=== PATIENT | female | born 1955 | race Caucasian/White ===

== ENCOUNTER 2016-08-13 17:45 | Inpatient (IN) ==
[2016-08-13] MEDS ORDERED: 0.9 % SODIUM CHLORIDE 1,000 ML IV ONE ×2 (18:01→18:49)
--- NOTE | 2016-08-13 18:05 | Emergency Department Note ---
General Adult HPI - General Chief complaint: Fall Stated complaint: Fall, hit head Time Seen by Provider: 08/13/16 18:01 Source: patient, EMS Mode of arrival: EMS - History of Present Illness HPI Narrative: This patient fell a few times today she says because she lost her balance. He did hit the back of her head and has some pain in her head and neck. Did not lose consciousness and does not take blood thinners. - Related Data Home Medications Medication Instructions Recorded Confirmed Carvedilol [Coreg] 12.5 mg PO BID 01/24/15 01/24/15 Hydrochlorothiazide 12.5 mg PO DAILY 01/24/15 01/24/15 Lisinopril [Zestril] 10 mg PO DAILY 01/24/15 01/24/15 Potassium Chloride [Kdur] 10 meq PO ONCE 01/24/15 01/24/15 hydrOXYzine PAMOATE [Vistaril] 25 mg PO Q6HP PRN 01/24/15 01/24/15 Allergies Allergy/AdvReac Type Severity Reaction Status Date / Time omeprazole Allergy Intermediate HIVES Verified 01/24/15 21:45 Review of Systems Constitutional: Denies: fever Eyes: Denies: eye pain ENT ED: Denies: ear pain Cardiovascular: Denies: chest pain Respiratory: Denies: cough Gastrointestinal: Denies: abdominal pain, nausea Genitourinary: Denies: urgency Musculoskeletal: Denies: back pain Integumentary: Denies: rash Neurological: Reports: headache Psychiatric: Denies: anxiety Past Medical History - Past Medical History Medical history: Reports: hypertension Psychiatric history: Reports: depression Physical Exam - General Limitations: no limitations General appearance: alert - Head Head exam: other (has a knot on the occiput) - Eye Eye exam: Present: normal appearance - ENT ENT exam: normal exam - Neck Neck exam: Present: normal inspection - Chest Chest inspection: Present: normal inspection - Respiratory Respiratory exam: Present: normal lung sounds bilaterally - Cardiovascular Cardiovascular exam: Present: regular rate, normal rhythm, normal heart sounds - Abdominal Exam Abdominal exam: Present: soft. Absent: distention, tenderness - Neurological Exam Neurological exam: Present: alert - Psychiatric Psychiatric exam: Present: normal affect - Skin Skin exam: Present: warm, dry Course Vital Signs Temperature 101.0 F H 08/13/16 17:46 Pulse Rate 105 H 08/13/16 17:46 Respiratory Rate 27 H 08/13/16 17:46 Blood Pressure 191/120 08/13/16 17:46 Pulse Oximetry (%) 98 08/13/16 17:46 Temperature 101.0 F H 08/13/16 17:46 Pulse Rate 97 H 08/13/16 18:29 Respiratory Rate 22 08/13/16 18:29 Blood Pressure 188/97 08/13/16 18:29 Pulse Oximetry (%) 100 08/13/16 18:29 Medical Decision Making - Lab Data Lab results reviewed: Yes I reviewed the patient's lab results. Result diagrams: 08/13/16 17:56 08/13/16 18:02 Lab Results 08/13/16 08/13/16 08/13/16 Range/Units 17:56 18:02 18:02 WBC 17.2 H (4.5-11.0) K/mcL RBC 4.31 (4.00-5.20) M/mcL Hgb 12.5 (12.0-15.0) g/dL Hct 36.1 (36.0-48.0) % POC Hct 37.0 (36.0-48.0) % MCV 83.9 (80.0-100.0) fL MCH 29.0 (26.0-34.0) pg MCHC 34.6 (31.0-36.0) g/dL RDW 13.6 (11.5-14.5) % Plt Count 296 (140-440) K/mcL MPV 8.6 (7.4-10.4) fL Gran % 87.1 H (38.0-78.0) % Lymph % (Auto) 8.8 L (15.5-49.0) % Luna % (Auto) 3.8 (1.0-9.0) % Eos % (Auto) 0.3 (0.0-7.0) % Baso % (Auto) 0 (0.0-2.0) % Gran # 14.9 H (1.8-8.0) K/mcL Lymph # 1.5 (1.5-4.8) K/mcL Luna # 0.7 (0.1-0.9) K/mcL Eos # 0.1 (0.0-0.7) K/mcL Baso # 0 (0.0-0.3) K/mcL Total Counted 100 Seg Neutrophils % 76 (38-78) % Band Neutrophils % 2 (0-10) % Lymphocytes % 9 L (15-49) % Monocytes % (Manual) 12 H (1-9) % Basophils % (Manual) 1 (0-2) % Platelet Estimate Normal (NORMAL) RBC Morphology Normal (NORMAL) VBG Lactic Acid (0.5-2.2) mmol/L POC Sodium 121 L (133-145) mmol/L Sodium 122 L (133-145) mmol/L POC Potassium 2.2 L* (3.3-5.1) mmol/L Potassium 2.3 L* (3.3-5.1) mmol/L POC Chloride 78 L (96-108) mmol/L Chloride 78 L (96-108) mmol/L Carbon Dioxide 27 (22-30) mmol/L POC Total CO2 28 (22-30) mmol/L Anion Gap 17.0 H (8-16) POC BUN 17 (8-23) mg/dl BUN 17 (8-23) mg/dl Creatinine 1.7 H (0.6-1.1) mg/dl POC Creatinine 1.8 H (0.6-1.1) mg/dl GFR Calculation 32 Glucose 153 H (70-105) mg/dL POC Glucose 155 H (70-105) mg/dL Calcium 7.3 L (8.6-10.4) mg/dl POC WB Ioniz Calcium 0.84 L (1.16-1.32) mmol/L Total Bilirubin 0.3 (0.0-1.0) mg/dL AST 24 (0-37) U/l ALT 14 (0-40) U/l Alkaline Phosphatase 143 H (39-117) U/L Total Creatine Kinase 177 H (24-170) IU/L CK-MB (CK-2) 6.0 H (0-2.9) ng/ml Myoglobin 154 H (25-58) ng/ml Troponin T (0-0.03) ng/ml Total Protein 5.8 L (5.9-8.4) gm/dL Albumin 2.7 L (3.2-5.2) gm/dL Globulin 3.1 (2.2-3.7) gm/dL Albumin/Globulin Ratio 0.9 L (1.0-2.3) Urine Color Urine Appearance Urine pH (5.0-9.0) Ur Specific [place] (1.000-1.035) Urine Protein (NEG) mg/dL Urine Glucose (UA) (NEG) mg/dL Urine Ketones (NEG) mg/dL Urine Occult Blood (<0.03) mg/dL Urine Nitrate (NEG) Urine Bilirubin (NEG) mg/dL Urine Urobilinogen (NEG) mg/dL Ur Leukocyte Esterase (NEG) /uL Urine RBC (0-1) /hpf Urine WBC (0-4) /hpf Ur Squamous Epith Cells (0-4) /hpf Amorphous Crystals (0) /hpf Urine Bacteria (0) /hpf Urine Mucus (0) /hpf Ur Culture Indicated? Urine Opiates Screen (NONDETECTED) Urine Methadone Screen (NONDETECTED) Ur Barbiturates Screen (NONDETECTED) Ur Phencyclidine Scrn (NONDETECTED) Ur Amphetamines Screen (NONDETECTED) U Benzodiazepines Scrn (NONDETECTED) Urine Cocaine Screen (NONDETECTED) U Marijuana (THC) Screen (NONDETECTED) Ethyl Alcohol (<0.010) gm/dl 08/13/16 08/13/16 08/13/16 Range/Units 18:02 18:03 18:03 WBC (4.5-11.0) K/mcL RBC (4.00-5.20) M/mcL Hgb (12.0-15.0) g/dL Hct (36.0-48.0) % POC Hct (36.0-48.0) % MCV (80.0-100.0) fL MCH (26.0-34.0) pg MCHC (31.0-36.0) g/dL RDW (11.5-14.5) % Plt Count (140-440) K/mcL MPV (7.4-10.4) fL Gran % (38.0-78.0) % Lymph % (Auto) (15.5-49.0) % Luna % (Auto) (1.0-9.0) % Eos % (Auto) (0.0-7.0) % Baso % (Auto) (0.0-2.0) % Gran # (1.8-8.0) K/mcL Lymph # (1.5-4.8) K/mcL Luna # (0.1-0.9) K/mcL Eos # (0.0-0.7) K/mcL Baso # (0.0-0.3) K/mcL Total Counted Seg Neutrophils % (38-78) % Band Neutrophils % (0-10) % Lymphocytes % (15-49) % Monocytes % (Manual) (1-9) % Basophils % (Manual) (0-2) % Platelet Estimate (NORMAL) RBC Morphology (NORMAL) VBG Lactic Acid 1.2 (0.5-2.2) mmol/L POC Sodium (133-145) mmol/L Sodium (133-145) mmol/L POC Potassium (3.3-5.1) mmol/L Potassium (3.3-5.1) mmol/L POC Chloride (96-108) mmol/L Chloride (96-108) mmol/L Carbon Dioxide (22-30) mmol/L POC Total CO2 (22-30) mmol/L Anion Gap (8-16) POC BUN (8-23) mg/dl BUN (8-23) mg/dl Creatinine (0.6-1.1) mg/dl POC Creatinine (0.6-1.1) mg/dl GFR Calculation Glucose (70-105) mg/dL POC Glucose (70-105) mg/dL Calcium (8.6-10.4) mg/dl POC WB Ioniz Calcium (1.16-1.32) mmol/L Total Bilirubin (0.0-1.0) mg/dL AST (0-37) U/l ALT (0-40) U/l Alkaline Phosphatase (39-117) U/L Total Creatine Kinase (24-170) IU/L CK-MB (CK-2) (0-2.9) ng/ml Myoglobin (25-58) ng/ml Troponin T 0.03 (0-0.03) ng/ml Total Protein (5.9-8.4) gm/dL Albumin (3.2-5.2) gm/dL Globulin (2.2-3.7) gm/dL Albumin/Globulin Ratio (1.0-2.3) Urine Color Urine Appearance Urine pH (5.0-9.0) Ur Specific [place] (1.000-1.035) Urine Protein (NEG) mg/dL Urine Glucose (UA) (NEG) mg/dL Urine Ketones (NEG) mg/dL Urine Occult Blood (<0.03) mg/dL Urine Nitrate (NEG) Urine Bilirubin (NEG) mg/dL Urine Urobilinogen (NEG) mg/dL Ur Leukocyte Esterase (NEG) /uL Urine RBC (0-1) /hpf Urine WBC (0-4) /hpf Ur Squamous Epith Cells (0-4) /hpf Amorphous Crystals (0) /hpf Urine Bacteria (0) /hpf Urine Mucus (0) /hpf Ur Culture Indicated? Urine Opiates Screen (NONDETECTED) Urine Methadone Screen (NONDETECTED) Ur Barbiturates Screen (NONDETECTED) Ur Phencyclidine Scrn (NONDETECTED) Ur Amphetamines Screen (NONDETECTED) U Benzodiazepines Scrn (NONDETECTED) Urine Cocaine Screen (NONDETECTED) U Marijuana (THC) Screen (NONDETECTED) Ethyl Alcohol < 0.010 (<0.010) gm/dl 08/13/16 08/13/16 Range/Units 18:34 18:34 WBC (4.5-11.0) K/mcL RBC (4.00-5.20) M/mcL Hgb (12.0-15.0) g/dL Hct (36.0-48.0) % POC Hct (36.0-48.0) % MCV (80.0-100.0) fL MCH (26.0-34.0) pg MCHC (31.0-36.0) g/dL RDW (11.5-14.5) % Plt Count (140-440) K/mcL MPV (7.4-10.4) fL Gran % (38.0-78.0) % Lymph % (Auto) (15.5-49.0) % Luna % (Auto) (1.0-9.0) % Eos % (Auto) (0.0-7.0) % Baso % (Auto) (0.0-2.0) % Gran # (1.8-8.0) K/mcL Lymph # (1.5-4.8) K/mcL Luna # (0.1-0.9) K/mcL Eos # (0.0-0.7) K/mcL Baso # (0.0-0.3) K/mcL Total Counted Seg Neutrophils % (38-78) % Band Neutrophils % (0-10) % Lymphocytes % (15-49) % Monocytes % (Manual) (1-9) % Basophils % (Manual) (0-2) % Platelet Estimate (NORMAL) RBC Morphology (NORMAL) VBG Lactic Acid (0.5-2.2) mmol/L POC Sodium (133-145) mmol/L Sodium (133-145) mmol/L POC Potassium (3.3-5.1) mmol/L Potassium (3.3-5.1) mmol/L POC Chloride (96-108) mmol/L Chloride (96-108) mmol/L Carbon Dioxide (22-30) mmol/L POC Total CO2 (22-30) mmol/L Anion Gap (8-16) POC BUN (8-23) mg/dl BUN (8-23) mg/dl Creatinine (0.6-1.1) mg/dl POC Creatinine (0.6-1.1) mg/dl GFR Calculation Glucose (70-105) mg/dL POC Glucose (70-105) mg/dL Calcium (8.6-10.4) mg/dl POC WB Ioniz Calcium (1.16-1.32) mmol/L Total Bilirubin (0.0-1.0) mg/dL AST (0-37) U/l ALT (0-40) U/l Alkaline Phosphatase (39-117) U/L Total Creatine Kinase (24-170) IU/L CK-MB (CK-2) (0-2.9) ng/ml Myoglobin (25-58) ng/ml Troponin T (0-0.03) ng/ml Total Protein (5.9-8.4) gm/dL Albumin (3.2-5.2) gm/dL Globulin (2.2-3.7) gm/dL Albumin/Globulin Ratio (1.0-2.3) Urine Color Yellow Urine Appearance Hazy Urine pH 7.0 (5.0-9.0) Ur Specific [place] 1.010 (1.000-1.035) Urine Protein >=500 A (NEG) mg/dL Urine Glucose (UA) 50 A (NEG) mg/dL Urine Ketones Neg (NEG) mg/dL Urine Occult Blood Neg (<0.03) mg/dL Urine Nitrate Pos A (NEG) Urine Bilirubin Neg (NEG) mg/dL Urine Urobilinogen Neg (NEG) mg/dL Ur Leukocyte Esterase Neg (NEG) /uL Urine RBC 4 H (0-1) /hpf Urine WBC 12 H (0-4) /hpf Ur Squamous Epith Cells 7 H (0-4) /hpf Amorphous Crystals Few A (0) /hpf Urine Bacteria 0 (0) /hpf Urine Mucus Few (0) /hpf Ur Culture Indicated? No Urine Opiates Screen None detected (NONDETECTED) Urine Methadone Screen None detected (NONDETECTED) Ur Barbiturates Screen None detected (NONDETECTED) Ur Phencyclidine Scrn Suspect positive A (NONDETECTED) Ur Amphetamines Screen None detected (NONDETECTED) U Benzodiazepines Scrn None detected (NONDETECTED) Urine Cocaine Screen None detected (NONDETECTED) U Marijuana (THC) Screen Suspect positive A (NONDETECTED) Ethyl Alcohol (<0.010) gm/dl - Radiology Data Radiology results reviewed: Yes I reviewed the patient's radiology results. Disposition Clinical Impression: Hypokalemia, Hyponatremia, Urinary tract infection, Congestive heart failure Disposition: Xfer As Inpt ([facility]) Condition: Fair Referrals: Benjamin Morales MD [Primary Care Provider] - Time of Disposition: 19:59
[2016-08-13] MEDS ORDERED: POTASSIUM CHLORIDE 40 MEQ in DEXTROSE 5% IN WATER 500 ML IV ONE (18:12)
[2016-08-13] MEDS ORDERED: POTASSIUM CHLORIDE 20 MEQ/10 ML VIAL IV ONE ×2 (18:16→20:52)
[2016-08-13 18:36] LABS: Basophils # (Auto) 0 K/mcL (0.0-0.3); Basophils % (Auto) 0 % (0.0-2.0); Eosinophils # (Auto) 0.1 K/mcL (0.0-0.7); Eosinophils % (Auto) 0.3 % (0.0-7.0); Granulocytes % (Auto) 87.1 % (38.0-78.0); Lymphocytes # (Auto) 1.5 K/mcL (1.5-4.8); Lymphocytes % (Auto) 8.8 % (15.5-49.0); Mean Cell Volume 83.9 fL (80.0-100.0); Mean Corpuscular HGB Conc 34.6 g/dL (31.0-36.0); Monocytes # (Auto) 0.7 K/mcL (0.1-0.9); Monocytes % (Auto) 3.8 % (1.0-9.0); Platelet Count 296 K/mcL (140-440); RBC 4.31 M/mcL (4.00-5.20); Red Cell Distribution Width 13.6 % (11.5-14.5)
[2016-08-13 19:02] LABS: ALT/SGPT 14 U/l (0-40); Albumin 2.7 gm/dL (3.2-5.2); Albumin/Globulin Ratio 0.9 (1.0-2.3); Alkaline Phosphatase 143 U/L (39-117); Blood Urea Nitrogen 17 mg/dl (8-23); Creatine Kinase 177 IU/L (24-170); Myoglobin 154 ng/ml (25-58)
--- NOTE | 2016-08-13 19:04 | Cat Scan Report ---
CLINICAL INFORMATION: Trauma COMPARISON: 01/24/2015. TECHNIQUE: 2.5 mm helical slices were obtained from the skull base through the superior T2 end plate, and 1.25 mm reconstructions were obtained. 2.5 mm sagittal, coronal and axial reformations were then processed. The exam was reviewed at bone, soft tissue algorithm/window. FINDINGS: Sagittal and coronal reformatted images show the cervical spine be anatomically aligned. There is no fracture or other posttraumatic change. The cervical cord is normal in contour/caliber without hemorrhage or other abnormality. There is extraordinarily heavy calcific plaque in the carotid bifurcation. No other soft tissue abnormality. At C2-3, there is a mild broad soft disc protrusion which minimally impinges the thecal sac. At C3-4, moderate broad soft disc protrusion mildly impinges the thecal sac. At C4-5, moderate broad disc spur complex left-sided asymmetry results in moderate central canal and left lateral recess/IV foraminal narrowing impinging exiting C5 nerve root. At C5-6, mild broad disc protrusion is noted At C6-7, right-sided disc spur complex results in severe right lateral recess last IV foraminal narrowing impinging the exiting right C7 nerve root. There is mild central canal stenosis. At C7-T1, the disc levels normal. IMPRESSION: 1. No fracture or posttraumatic change 2. Multilevel degenerative change - stable 3. Heavy calcific plaque in the carotid bifurcation - suggest carotid duplex study Interpreted and Authenticated by: Emanuel Valdez 08/13/16
--- NOTE | 2016-08-13 19:08 | Cat Scan Report ---
CLINICAL INFORMATION: Trauma COMPARISON: 07/03/2010 TECHNIQUE: 2.5 mm helical slices were obtained in the skull base to vertex. Following reconstruction, axial reformatted images were reviewed at bone and parenchymal windows. FINDINGS: The ventricles, sulci, fissures, and cisterns are symmetrically enlarged bowel mild age-related atrophy - no extra-axial fluid collections or masses appreciated. Patchy chronic ischemic changes noted in the cerebral white matter. Scattered remote lacunar infarcts in the deep cerebral white matter, basal ganglia and thalamus show moderate progression from 2011. Bone windows show no osseous abnormality. IMPRESSION: Mild atrophy and chronic ischemic changes in the cerebral white matter with scattered remote lacunar infarcts in the basal ganglia and deep cerebral white matter which have progressed considerably from the 2011 study. There is no intracerebral hemorrhage or other acute finding. Note: Given the number of lacunar infarcts within the anterior circulation in a relatively young patient and the known heavy calcific plaque in the carotid bifurcation incidentally seen on the cervical spine CT, please consider CT cervical carotid arteriogram/CT cerebral angiogram to evaluate for carotid stenosis Interpreted and Authenticated by: Emanuel Valdez 08/13/16
--- NOTE | 2016-08-13 19:09 | XRay Report ---
CLINICAL INFORMATION: Fever COMPARISON: 01/24/2015 FINDINGS: The heart is mildly enlarged although accentuated by rotation and lordotic positioning. Mediastinum is unremarkable. The pulmonary vessels are mildly distended and there is mild diffuse interstitial edema. No infiltrates or effusions. Heavy calcific plaque in the carotid bifurcations. IMPRESSION: Mild CHF or volume overload Interpreted and Authenticated by: Emanuel Valdez 08/13/16
[2016-08-13 19:17] LABS: Band Neutrophils % 2 % (0-10); Basophils % (Manual) 1 % (0-2); Lymphocytes % 9 % (15-49); Monocytes % (Manual) 12 % (1-9); Platelet Estimate NORMAL (NORMAL); RBC Morphology NORMAL (NORMAL); Segmented Neutrophils % 76 % (38-78)
[2016-08-13 19:24] LABS: Appearance,Urine HAZY; Bacteria,Urine 0 /hpf (0); Bilirubin,Urine NEG (NEG); Color,Urine YELLOW; Glucose,Urine (UA) 50 mg/dL (NEG); Leukocyte Esterase,Urine NEG /uL (NEG); Mucus,Urine FEW /hpf (0); Nitrate,Urine POS (NEG); Protein,Urine >=500 mg/dL (NEG); Urine Amorphous Crystals FEW /hpf (0); Urine Blood NEG mg/dL (<0.03); Urine RBC 4 /hpf (0-1); Urine Squamous Epithelial Cell 7 /hpf (0-4); Urine WBC 12 /hpf (0-4); Urobilinogen,Urine NEG (NEG)
[2016-08-13 19:47] LABS: Amphetamine Screen,Urine NONE DETECTED (NONDETECTED); Benzodiazepines Screen,Urine NONE DETECTED (NONDETECTED); Cocaine Screen,Urine NONE DETECTED (NONDETECTED); Opiate Screen,Urine NONE DETECTED (NONDETECTED)
[2016-08-13] MEDS ORDERED: LEVOFLOXACIN 500 MG/100 ML BAG IV ONE ×2 (19:53→22:59)
[2016-08-13] MEDS ORDERED: POTASSIUM CHLORIDE 20 MEQ TABLET PO ONE (20:40)
[2016-08-13] MEDS ORDERED: POTASSIUM CHLORIDE 40 MEQ in 0.9 % SODIUM CHLORIDE 500 ML IV ONE (20:49)
[2016-08-13] MEDS ORDERED: POTASSIUM CHLORIDE 10 MEQ TABLET PO ONE (21:02)
[2016-08-13] MEDS ORDERED: FUROSEMIDE 40 MG/4 ML VIAL IV ONE (21:16)
[2016-08-13] MEDS ORDERED: traZODone HCL 50 MG TABLET PO PRN (22:28)
[2016-08-13] MEDS ORDERED: LEVOFLOXACIN 750 MG/150 ML BAG IV SCH (22:28)
[2016-08-13] MEDS ORDERED: ACETAMINOPHEN 1,000 MG/100 ML BOTTLE IV PRN (22:28)
[2016-08-13] MEDS ORDERED: ONDANSETRON 4 MG/2 ML VIAL IV PRN (22:28)
[2016-08-13] MEDS ORDERED: MAGNESIUM SULFATE 2 GM/50 ML BAG IV PRN ×2 (22:28)
[2016-08-13] MEDS ORDERED: FUROSEMIDE 40 MG/4 ML VIAL IV SCH (22:28)
[2016-08-13] MEDS ORDERED: cefTRIAXone 2 GM in DEXTROSE 5% IN WATER 50 ML IV SCH (22:28)
[2016-08-13] MEDS ORDERED: ACETAMINOPHEN 325 MG TABLET PO PRN (22:28)
[2016-08-13] MEDS ORDERED: guaiFENesin/CODEINE 10 ML UDC PO PRN (22:28)
[2016-08-13] MEDS ORDERED: POTASSIUM CHLORIDE 40 MEQ in DEXTROSE 5% IN WATER 500 ML IV PRN (22:28)
[2016-08-13] MEDS ORDERED: POTASSIUM CHLORIDE 20 MEQ PACKET PO PRN (22:28)
[2016-08-13] MEDS ORDERED: cefTRIAXone 2 GM VIAL ONE (23:03)
[2016-08-13] MEDS: POTASSIUM CHLORIDE 20 MEQ/15 ML ML PO SCH (23:19)
[2016-08-13] MEDS ORDERED: HYDROcodone/APAP 5/325MG TABLET PO ONE (23:26)
[2016-08-13 23:42] LABS: C-Reactive Protein 0.3 mg/dl (0.0-0.8)
[2016-08-14] MEDS: DOCUSATE SODIUM 100 MG CAPSULE PO SCH ×3 (00:08→20:58)
[2016-08-14] MEDS: SENNOSIDES/DOCUSATE SODIUM 1 TAB TABLET PO SCH ×2 (00:08→20:58)
[2016-08-14] MEDS ORDERED: HEPARIN 5,000 UNIT/ML VIAL ONE (00:09)
[2016-08-14] MEDS: 0.9 % SODIUM CHLORIDE 10 ML SYRINGE IV SCH ×5 (00:11→20:58)
[2016-08-14] MEDS: HEPARIN 5,000 UNIT/ML VIAL SQ SCH ×3 (00:12→20:57)
[2016-08-14] MEDS ORDERED: hydrALAZINE 20 MG/ML VIAL ONE (01:00)
[2016-08-14] MEDS ORDERED: ONDANSETRON 4 MG/2 ML VIAL ONE (01:19)
[2016-08-14] MEDS ORDERED: LORazepam 2 MG/ML VIAL ONE (01:25)
[2016-08-14] MEDS ORDERED: LORazepam 2 MG/ML VIAL IV PRN (01:29)
[2016-08-14 02:25] LABS: ALT/SGPT 12 U/l (0-40); Albumin 2.4 gm/dL (3.2-5.2); Alkaline Phosphatase 130 U/L (39-117); Bilirubin,Direct < 0.2 mg/dL (0.0-0.3); Blood Urea Nitrogen 15 mg/dl (8-23); Gamma Glutamyl Transpeptidase 20 U/L (5-36); Magnesium 1.2 mg/dL (1.6-2.5); Mean Cell Volume 84.7 fL (80.0-100.0); Mean Corpuscular HGB Conc 33.5 g/dL (31.0-36.0); Mean Corpuscular Hemoglobin 28.3 pg (26.0-34.0); Phosphorous 2.9 mg/dL (2.7-4.5); Platelet Count 279 K/mcL (140-440); RBC 4.04 M/mcL (4.00-5.20); Red Cell Distribution Width 13.8 % (11.5-14.5); Uric Acid 5.1 mg/dL (2.5-8.0)
[2016-08-14 02:37] LABS: Band Neutrophils % 2 % (0-10); Lymphocytes % 7 % (15-49); Monocytes % (Manual) 6 % (1-9); Platelet Estimate NORMAL (NORMAL); RBC Morphology NORMAL (NORMAL); Segmented Neutrophils % 85 % (38-78)
--- NOTE | 2016-08-14 04:06 | History and Physical Report ---
DATE OF ADMISSION: 08/13/2016 DATE OF ADMISSION: 08/13/2016 REASON FOR ADMISSION: Weakness, fall. HISTORY OF CHIEF COMPLAINT: The patient is a 60-year-old who comes to [facility] ER after she has been falling the last couple of days due to significant weakness. As per patient, she grieving loss of her mother and has been very depressed. She has been living in a trailer along with her cat. She has been extremely unkempt and has not been able take care of herself. She has had multiple abrasions and bruises over arm, head and lower extremities. Initial workup in the ER was significant for white count over 17,000 along with potassium of 2.2, sodium of 121 and creatinine 1.7. In light of acute renal failure, critical hypokalemia, sepsis, hospitalist service was consulted. The patient was started on aggressive potassium replacement including IV potassium. Nephrology was consulted. At the time of examination, the patient is alert. She is fairly disheveled. She was able to provide most of the history. She denies headache or photophobia. Denies diarrhea, bloody stool, dysuria, abdominal pain. She does endorse to nausea, but denies chest pain, palpitation, cough. She is a regular smoker, less than a pack a day. She has not had anything to eat over the last day and half and attributes to significant depression from loss of her mother. She also has two sisters in town that she is not in good relationship with. She did not have any other help in the recent past. REVIEW OF SYSTEMS: Ten-point review of system was performed and negative except what was discussed above. PAST MEDICAL HISTORY : 1. Hypertension. 2. History of dyslipidemia. 3. Peripheral artery disease. CURRENT MEDICATIONS: 1. Hydrochlorothiazide 12.5 daily. 2. Coreg 12.5 mg twice daily. 3. Lisinopril 10 mg daily. 4. Potassium 10 mEq daily. 5. Hydroxyzine 25 mg every 6 hours. ALLERGIES: Known to OMEPRAZOLE. SOCIAL HISTORY: The patient lives in a trailer. She has a couple of family members in town. She smokes nearly a pack a day. No history of alcoholism. Denies any substance abuse. CODE STATUS: FULL CODE. FAMILY HISTORY: The patient unable to provide significant details. PHYSICAL EXAMINATION: GENERAL: The patient is disheveled, anxious, fidgety. BMI 20.5. Height 5 feet 7 inches. VITAL SIGNS: Blood pressure 185/91, respiratory rate 19, temperature 97.6, pulse 84, sats 98 percent on room air. HEENT: Pupils symmetric. Oral cavity is dry. No ear or nose discharge. Head base of occiput significant bruising, 3 x 3 cm, but no discharge or bleeding. NECK: Normal range of motion with no lymphadenopathy. HEART: S1, S2, regular rhythm. Ejection systolic murmur grade 1. Diminished breath sounds at bases. ABDOMEN: Soft and nontender. No organomegaly. LOWER EXTREMITIES: No cyanosis or clubbing. No joint swelling. SKIN: Generalized dry skin. PSYCHIATRIC: Anxious, fidgety, but cooperative. No agitation or hallucination. NEURO: Nonfocal, moving all 4 extremities. LABS AND IMAGING: UA significant for total WBCs, nitrite positive. Sodium 120, potassium 2.2, creatinine 1.7, BUN 17. Myoglobin 154. BNP 37/91. Troponin 0.03. CK 177. Lactic acid 1.2. White count 13.2, hemoglobin 12.5. Urine phencyclidine positive, marijuana positive. CT head: Atrophic chronic ischemic changes. Multiple lacunar infarcts in the anterior circulation. No acute findings. CT cervical spine: No fracture. Heavy calcific carotid bifurcation plaque. X-ray chest: Mild CHF/volume overload. EKG: Early U waves noted, high voltage, right axis deviation. ASSESSMENT AND PLAN: A 60-year-old admitted with sepsis, critical hypokalemia/uvolemic hyponatremia. 1. Severe sepsis: Continue antibiotic coverage. Likely source urinary tract infection. Await cultures. Close hemodynamic monitoring. 2. Critical hypokalemia: Start oral and IV replacement including 80 oral/40 IV. Every 4 hour BMP until potassium around 3.5. 3. Euvolemic hyponatremia: The patient does not appear to be volume long. Unclear etiology, likely secondary to thiazide use/poor oral intake. Continue every 4 hour sodium checks and target sodium rise 10 mEq per day. Consult nephrology. 4. Acute renal failure: Nephrology consulted. Renal ultrasound to rule out obstructive uropathy. 5. Complicated urinary tract infection: Continue antibiotic coverage. 6. Prior medical issues including hypertension. Continue as-needed hydralazine, hold TRI inhibitor in light of acute renal insufficiency. 7. History of tobacco dependence: Continue nicotine patch. PLAN FOR TODAY: 1. Admit in ICU. 2. Aggressive potassium replacement. 3. Every 4 hour sodium checks along with potassium. 4. Antibiotic coverage. 5. Admit to ICU in light of [place] score 18 and high risk mortality given critical hypokalemia, symptomatic hyponatremia of uncertain etiology, acute renal failure and sepsis. [id number] Job ID: [id number] Doc ID: [id number] Manan Andrews MD [facility]ENTERQuinton
[2016-08-14] MEDS ORDERED: POTASSIUM CHLORIDE 20 MEQ/10 ML VIAL IV ONE ×2 (04:24→04:29)
[2016-08-14] MEDS ORDERED: MAGNESIUM SULFATE 2 GM/50 ML BAG IV ONE ×2 (04:24→08:24)
[2016-08-14] MEDS ORDERED: HYDROcodone/APAP 5/325MG TABLET PO ONE (06:45)
[2016-08-14] MEDS: POTASSIUM CHLORIDE 20 MEQ/15 ML ML PO SCH ×2 (08:07→17:33)
[2016-08-14] MEDS: MULTIVIT,THER IRON,CA,FA & MIN 1 TABLET PO SCH (09:30)
[2016-08-14 10:41] LABS: Blood Urea Nitrogen 13 mg/dl (8-23)
--- NOTE | 2016-08-14 10:46 | Internal Med Progress Note ---
Medical - PN: Subj Patient information: Note initiated : 08/14/16 at 10:42 am Service Date, if different from initiated Date: [] Patient: Eliz Bruno 60 y/o F admitted on 08/13/16 for Sepsis, Critical Hypokalemia/Uvolemic Hyponatremia. Chief Complaint: [] Interval history: - patient admitted with critical hypokalemia,symptomatic hyponatremia, congestive heart failure weakness and falls. Associated UTI with sepsis. Admitted to ICU. High risk mortality. On aggressive electrolyte Replacement/ Monitoring. Nephrology consulted. CHERI secondary to severe sepsis 08/14- dictation responding well to treatment along with aggressive electrolyte replacements. Continue ICU care. Potassium from 2.2-3.4. creatinine down from 1.7-1.5. Magnesium up from 0.9-1.2. sodium improved to 124. Aontinue dietary supplements/supportive management. white count downtrending from 17.2 -16.4. Stable labs and hemodynamics. cultures negative so far - Constitutional Vitals: Vital Signs Temp Pulse Resp BP Pulse Ox 98.4 F 83 20 152/88 97 08/14/16 07:00 08/14/16 06:00 08/14/16 09:00 08/14/16 09:00 08/14/16 09:00 Period Temp Pulse Resp BP Sys/Cates Pulse Ox Last 24 Hr 97.6 F-98.4 F 82-92 16-20 143-194/79-107 96-100 Intake and Output 08/13/16 08/14/16 08/14/16 21:59 05:59 13:59 Intake Total 1728 / 1728 630 / 630 Output Total 2900 / 4400 Balance -1172 / -2672 630 / 630 Intake & Output: Intake & Output 08/13/16 08/14/16 08/14/16 21:59 05:59 13:59 Intake Total 1728 / 1728 630 / 630 Output Total 2900 / 4400 Balance -1172 / -2672 630 / 630 Intake: IV 668 / 668 100 / 100 Sodium Chloride 0.9% 1, 148 / 148 000 ml @ Wide Open IV BOLUS ONE Rx#:[id number] LEVAQUIN 500 mg In 100 ml 50 / 50 As IV .STK-MED ONE Rx#: [id number] MAGNESIUM SULFATE 2 gm In 50 / 50 50 ml As IV .STK-MED ONE Rx#:[id number] Saline Flush 500 ML @ 130 520 / 520 mls/hr IV ONCE ONE with Potassium Chloride 40 Meq Rx#:[id number] Oral 960 / 960 480 / 480 IV - Manual Only 100 / 100 50 / 50 Output: Urine Catheter Amount 2900 / 4400 Other: Meal Nourishment/Supplement Breakfast Percent of Meal Consumed 100% 50% # Bowel Movements 0 General appearance: cooperative, no acute distress Exam: grieving- loss of mother Anxious No telemetry events Foleys draining clear urine nonlabored breathing Medical - PN: Obj Da - Labs CBC & Chem 7: 08/14/16 01:31 08/14/16 08:08 Labs: Abnormal Lab Results 08/14/16 08/14/16 08/14/16 08:08 01:31 01:31 WBC 16.4 H Hgb 11.5 L Hct 34.3 L Seg Neutrophils % 85 H Lymphocytes % 7 L ESR Sodium 124 L 124 L Potassium 3.1 L Chloride 84 L 83 L Creatinine 1.5 H 1.6 H Glucose 138 H Calcium 6.8 L 6.7 L Magnesium 1.2 L Alkaline Phosphatase 130 H Total Protein 4.9 L Albumin 2.4 L 08/13/16 08/13/16 22:40 22:40 WBC Hgb Hct Seg Neutrophils % Lymphocytes % ESR 65 H Sodium Potassium Chloride Creatinine Glucose Calcium Magnesium 1.3 L Alkaline Phosphatase Total Protein Albumin Meds: Medications Acetaminophen (Tylenol) 650 mg PO Q4-6HP PRN PRN Reason: PAIN/FEVER > 101 Last Admin: 08/14/16 08:08 Dose: 650 mg Acetaminophen/Hydrocodone Bitart ([place] 5/325mg) 1 tab PO Q4-6HP PRN PRN Reason: Pain Docusate Sodium (Colace) 100 mg PO BID [facility] Last Admin: 08/14/16 09:30 Dose: 100 mg Guaifenesin/Codeine Phosphate (Robitussin Ac) 10 ml PO Q4HP PRN PRN Reason: Cough Heparin Sodium (Porcine) (Heparin) 5,000 unit SQ Q12 [facility] Last Admin: 08/14/16 09:31 Dose: 5,000 unit Hydralazine HCl (Apresoline) 0 mg IV Q8HP PRN PRN Reason: Hypertension Potassium Chloride 40 meq/ (Dextrose) 520 mls @ 130 mls/hr IV UD PRN PRN Reason: K+ = or < 3.5 Magnesium Sulfate (Magnesium Sulfate) 2 gm in 50 mls @ 50 mls/hr IV UD PRN PRN Reason: Mag < or = 1.7 Acetaminophen (Ofirmev) 1,000 mg in 100 mls @ 200 mls/hr IV Q6HP PRN PRN Reason: PAIN/FEVER > 101 Ceftriaxone Sodium 2 gm/ (Dextrose) 50 mls @ 100 mls/hr IV DAILY [facility] Levofloxacin (Levaquin) 750 mg in 150 mls @ 100 mls/hr IV Q48H [facility] Iron Carb/Multivit/[place]/Folic Acid (Multivitamin W/Minerals) 1 tab PO DAILY [facility] Last Admin: 08/14/16 09:30 Dose: 1 tab Lorazepam (Ativan) 0.5 mg IV BIDP PRN PRN Reason: ANXIETY/SEDATION Last Admin: 08/14/16 10:08 Dose: 0.5 mg Ondansetron HCl (Zofran) 4 mg IV Q4-6HP PRN PRN Reason: Nausea And Vomiting Pneumococcal Polyvalent Vaccine (Pneumovax 23) 0.5 ml IM .ONCE ONE Stop: 08/15/16 09:01 Potassium Chloride (Klor-Con) 40 meq PO DAILYP PRN PRN Reason: K+ < 3.5 Potassium Chloride (Potassium Chloride) 40 meq PO BIDCC [facility] Last Admin: 08/14/16 08:07 Dose: 40 meq Senna/Docusate Sodium (Senna Plus Tablet) 1 tab PO HS [facility] Last Admin: 08/14/16 00:08 Dose: Not Given Sodium Chloride (Saline Flush) 10 ml IV Q8 [facility] Last Admin: 08/14/16 05:00 Dose: 10 ml Trazodone HCl (Desyrel) 50 mg PO HSP PRN PRN Reason: Insomnia Medical - PN: A/P - Time Spent With Patient Total time spent is greater than 50% in coordination of care (as documented) at patient's floor/unit and/or counseling patient: 25 - 35 minutes (1) Acute hypokalemia Status: Acute Assessment and plan: * Critical hypokalemiamultiple electrolyte abnormalities- ephrology consulted. Potassium up from 2.2-3.4 with replacement. * low magnesium and calcium-continue replacement * Euvolemic hyponatremia-Gradually uptrending sodium. Likely secondary to poor solute intake * severe sepsis from complicated UTI with end organ dysfunction-clinically improving * Complicated UTI on antibiotic coverage * CHERI-gradual improvement noted with crystalloids and sepsis management * History of hypertension- unclear if the patient has been taking her home medications. systolics around 150s plan * continue aggressive electrolyte Replacement including otassium/magnesium/ calcium * every 4 BMP * Antibiotic coverage and sepsis management per guidelines * Monitor renal function * nephrology consult Critical care time: 35 minutes Current Visit: Yes Medical - PN: Qual - VTE Deep Vein Thrombosis/Pulmonary Embolism Present on Admission: No
--- NOTE | 2016-08-14 13:44 | Ultrasound Report ---
History: Acute renal failure and evaluate for obstructive uropathy Findings: Right kidney is atrophic and measures 3.0 x 3.9 x 6.0 cm. There is compensatory enlargement of left kidney which measures 5.3 x 5.4 x 12.4 cm. This is a chronic stable finding, unchanged from the prior ultrasound done on 10/10/13. Superior lateral to the right kidney there are small collections of fluid. One is in Morison's pouch and measures 0.9 x 1.1 x 1.4 cm. Lateral to the midportion right kidney there is another cystic structure which measures 0.6 x 0.9 x 1.3 cm. These were not present on the prior ultrasound. There is no hydronephrosis or stone in the right kidney. Centrally in the left kidney there are multiple echogenic shadowing structures. The largest is 0.4 x 0.9 cm. These appear to be stones. They were not seen on the prior exam. There are also prominent hypoechoic pyramids. There is a cortical hypoechoic structure laterally in the midportion which measures 0.7 x 0.9 x 1.0 cm. This could be a cyst with some internal echogenic material. This was also seen on the prior study. There is a Cruz catheter within the bladder. The bladder is incompletely decompressed. Impression: 1. Chronic atrophy of the right kidney. Adjacent to the kidney there are two small irregularly-shaped fluid collections of undetermined etiology. 2. Nonobstructing kidney stones in left kidney but without hydronephrosis. 1. 1 cm complex cyst laterally in the midportion left kidney Interpreted and Authenticated by: Leroy Salinas 08/14/16
--- NOTE | 2016-08-14 14:14 | Nephrology Consult Note ---
History of Present Illness - Reason for Consult Patient information: Note initiated : 08/14/16 at 1:42 pm Service Date, if different from initiated Date: [] Patient: Eliz Bruno a 60 y/o F admitted on 08/13/16 for Sepsis, Critical Hypokalemia/Uvolemic Hyponatremia. Chief Complaint: [] Consult date: 08/14/16 acute renal failure, hyponatremia, hypokalemia Requesting physician: Manan Andrews - Chief Complaint fall - History of Present Illness Ms Bruno is a 60 y/o white female with PMH of htn, cad, chf, PVD and other multiple medical issues who is admitted with hyponatremia, hypokalemia and renal issues Patient presented to the ED after she had a fall at home Patient does not remember if she was dizzy or lightheaded She does have some bruises over her neck on evaluation she was found to have hyponatremia and hypokalemia and abnormal renal function, uncontrolled HTN and mild CHF and also UTI and hence she was hospitalised She states that she has been feeling depressed since her mother and not eating or drinking much fluids or takign her medications She has lost almost 20 lbs She denies edema, SOB, CP no nausea, vomiting no diarrhea no urinary symptoms Review of Systems All systems PM: reviewed and no additional remarkable complaints except as stated ( IN HPI) Past History Past surgical history: HTN CAD/CHF PVD CKD Past family history: sister had ESRD was on dialysis, from cardiac issues Past social history: lives alone at present has kids who live in [place] smokes a pack of cig every day Utox positive for marijuana and ?? PCP Medications and Allergies Home Medications Medication Instructions Recorded Confirmed Type Benazepril [Lotensin] 40 mg PO DAILY 08/14/16 08/14/16 History Triamterene/Hydrochlorothiazid 1 each PO DAILY 08/14/16 08/14/16 History [Triamterene-Hctz 37.5-25 mg Tb] amLODIPine [Norvasc] 10 mg PO DAILY 08/14/16 08/14/16 History Allergies Allergy/AdvReac Type Severity Reaction Status Date / Time omeprazole Allergy Intermediate HIVES Verified 01/24/15 21:45 Exam - Vital Signs Vital signs: Temp Pulse Resp BP Pulse Ox 98.0 F 83 16 172/90 98 08/14/16 12:00 08/14/16 06:00 08/14/16 12:00 08/14/16 12:00 08/14/16 12:00 - General Appearance General appearance: chronically ill EENT: mucous membranes moist Neck: no JVD Respiratory: clear Cardiology: no rub, no edema, normal S1, normal S2 Gastrointestinal: no tenderness, no guarding Integumentary: no rash, warm and dry Neurologic: no focal deficit, alert and oriented x3 Musculoskeletal: no erythema, no cyanosis Psychiatric: depressed (TEARFUL DURING ENTIRE EXAM) Results - Lab Results 08/14/16 01:31 08/14/16 08:08 Most recent lab results Calcium 6.8 mg/dl (8.6-10.4) L 08/14/16 08:08 Phosphorus 2.9 mg/dL (2.7-4.5) 08/14/16 01:31 Magnesium 1.2 mg/dL (1.6-2.5) L 08/14/16 01:31 Assessment and Plan (1) Chronic kidney disease, stage 3 Patient was seen a couple of yrs ago then lost to follow up I have seen her in the past, last visit in 2013, s.creat was 1.4-1.5 then s.creat was 2.7 last year when she was in ED so renal function is stable she has proteinuria on her UA so will obtain UPCR renal US pending will follow the same Hyponatremia and hypokalemia and hypomagesemia from poor po intake as was not taking medications improving labs with replacement would continue with aggressive replacement UTI/Sepsis: ongoing antibiotics will follow culture HTN: uncontrolled as renal function is at baseline would be safe to resume ACEI, would also start amlodipine will follow along Thank you for giving me an opportunity to participate in Ms Bruno's medical care , appreciate it Status: Acute (2) Acute hypokalemia Status: Acute (3) Hyponatremia Status: Acute
[2016-08-14] MEDS: cefTRIAXone 2 GM in DEXTROSE 5% IN WATER 50 ML IV SCH (14:43)
[2016-08-14] MEDS ORDERED: NICOTINE 21 MG PATCH TOPICAL ONE (15:07)
[2016-08-14] MEDS: HYDROcodone/APAP 5/325MG TABLET PO PRN ×2 (15:11→22:18)
[2016-08-14] MEDS: LORazepam 0.5 MG TABLET PO PRN ×2 (15:40→20:57)
[2016-08-14 15:50] LABS: Blood Urea Nitrogen 13 mg/dl (8-23)
[2016-08-14 18:36] LABS: Blood Urea Nitrogen 14 mg/dl (8-23)
[2016-08-14] MEDS ORDERED: amLODIPine 5 MG TABLET PO SCH (21:00)
[2016-08-14 21:57] LABS: Blood Urea Nitrogen 16 mg/dl (8-23)
[2016-08-14] MEDS: hydrALAZINE 20 MG/ML VIAL IV PRN (22:03)
[2016-08-14] MEDS ORDERED: FUROSEMIDE 40 MG/4 ML VIAL IV ONE ×2 (23:36→23:37)
[2016-08-15 01:11] LABS: Blood Urea Nitrogen 15 mg/dl (8-23)
[2016-08-15 05:07] LABS: Mean Cell Volume 86.7 fL (80.0-100.0); Mean Corpuscular HGB Conc 33.1 g/dL (31.0-36.0); Mean Corpuscular Hemoglobin 28.7 pg (26.0-34.0); Platelet Count 263 K/mcL (140-440); RBC 3.92 M/mcL (4.00-5.20); Red Cell Distribution Width 15.4 % (11.5-14.5)
[2016-08-15 05:45] LABS: ALT/SGPT 10 U/l (0-40); Albumin 2.3 gm/dL (3.2-5.2); Albumin/Globulin Ratio 0.8 (1.0-2.3); Alkaline Phosphatase 126 U/L (39-117); Bilirubin,Direct < 0.2 mg/dL (0.0-0.3); Blood Urea Nitrogen 15 mg/dl (8-23); Gamma Glutamyl Transpeptidase 21 U/L (5-36); Magnesium 1.7 mg/dL (1.6-2.5); Phosphorous 3.4 mg/dL (2.7-4.5); Uric Acid 5.4 mg/dL (2.5-8.0)
[2016-08-15 05:59] LABS: Anisocytosis 1+ (NONE SEEN); Eosinophils % (Manual) 2 % (0-7); Lymphocytes % 13 % (15-49); Monocytes % (Manual) 7 % (1-9); Platelet Estimate NORMAL (NORMAL); RBC Morphology ABNORM (NORMAL); Segmented Neutrophils % 78 % (38-78)
[2016-08-15] MEDS: hydrALAZINE 20 MG/ML VIAL IV PRN (06:01)
[2016-08-15] MEDS: HYDROcodone/APAP 5/325MG TABLET PO PRN ×3 (06:16→13:58)
[2016-08-15] MEDS: 0.9 % SODIUM CHLORIDE 10 ML SYRINGE IV SCH ×4 (06:17→21:27)
[2016-08-15] MEDS: LORazepam 0.5 MG TABLET PO PRN ×2 (06:40→21:26)
--- NOTE | 2016-08-15 06:49 | Echocardiogram Report ---
ECHOCARDIOGRAM: 2-D and M-mode echocardiography with cardiac Doppler and color flow imaging were performed with a [employer]. Indication is congestive heart failure. Overall and size of the RA, RV, and aortic root appeared normal. The LA and LV appeared mildly enlarged. LV wall thickness appeared normal. Systolic performance appeared moderately and globally depressed. Estimated ejection fraction is 40%. There was no evidence for mural thrombi. The aortic valve appeared trileaflet and normal. There was no evidence for aortic stenosis or aortic regurgitation by Doppler interrogation. The mitral and tricuspid valves appeared structurally unremarkable. Doppler interrogation of LV inflow disclosed prolonged early diastolic deceleration time and ''a'' wave dominance indicating delayed LV relaxation. Mitral regurgitation, probably moderately severe to severe (3-4+) was noted. Color flow imaging disclosed a prominent centrally directed regurgitant jet. Pulmonary venous interrogation disclosed normal ''s'' wave dominance. The pulmonic valve was not visualized. Pulmonary artery acceleration time appeared normal. There was no evidence for pulmonic stenosis or pulmonic regurgitation. There was no evidence for tricuspid regurgitation. No intracardiac shunting was appreciated. Some contrast in the right heart chambers, probably related to an IV infusion were appreciated, however. There was no evidence for pericardial effusion. The IVC was dilated and did not vary with the respiratory cycle indicating raised the CVP. PA systolic could not be calculated due to absent tricuspid regurgitation jet. Sinus rhythm, rate 76, was present. CONCLUSION: Mitral regurgitation, probably moderately severe to severe (3-4+). Mild LV enlargement with moderate global systolic dysfunction/mild LA enlargement, probably related to the atrial regurgitation. Probable raised CVP. (See accompanying M-mode and Doppler reports for quantitation.) ECHOCARDIOGRAPHY M-MODE CALCULATIONS: HT: 67'' WT: 131 BSA: 1.69 m2 NORMALS AORTA: AORTIC ROOT 2.9 2.0-3.7 cm LEFT ATRIUM 4.4 1.9-4.0 cm MITRAL VALVE: EXCURSION 1.6 1.9-2.7 cm EPSS 1.5 <0.5 cm LT VENTRICLE: LVID (ED) 5.5 3.5-5.7 cm LVID (ES) 4.3 SEPTAL THICKNESS 1.1 0.6-1.1 cm SEPTAL EXCURSION 0.6 0.3-0.8 cm LVPW THICKNESS 1.2 0.6-1.1 cm LVPW EXCURSION 1.1 0.9-1.4 cm MINOR AXIS FS 2.2 25%-40% RT VENTRICLE: RVID (ED) -- 0.9-2.6 cm(up to 3cm if LLD) QUALITATIVE DOPPLER FLOW STUDIES MITRAL VALVE MR, probably moderately severe to severe (3-4+) AORTIC VALVE -- TRICUSPID VALVE -- PULMONIC VALVE -- QUANTITATIVE DOPPLER FLOW STUDIES SAMPLE SITES VELOCITIES PEAK PRESSURE VALVE AREA and/or VALVE WINDOW (PEAK,M/SEC) DROP (GRADIENT) PRESSURE HALF-TIME MV (Diastole) 1.2 1.5 -- -- MV (Systole) 6.3 -- -- AO (Diastole) -- -- -- AO (Systole) 1.6 -- -- TV (Systole) -- -- -- PV (Systole) 0.95 -- -- PV (Diastole) -- LWG:kylah Job ID: [id number] Doc ID: [id number] Sanchez Carrion MD
[2016-08-15] MEDS: POTASSIUM CHLORIDE 20 MEQ/15 ML ML PO SCH (08:05)
--- NOTE | 2016-08-15 08:17 | XRay Report ---
HISTORY: Reason for Exam:Interval Change=- CHF FINDINGS: The heart size is normal. Prominent increased interstitial lung markings are present in both lower lobes and around the right hilum. Small infiltrate is developing adjacent left diaphragm and lateral to the left upper heart border. There is also a tiny left-sided pleural effusion. The infiltrate and pleural effusion are new since 08/13/16. The interstitial lung disease remains stable. The pulmonary vessels, best seen in the upper lobes are normal in caliber. Comparison with the prior chest CT done at [place] on 01/28/08 shows the patient has underlying emphysema. IMPRESSION: 1. Small infiltrate left lower lobe which may be due two pneumonia or atelectasis 2. Stable interstitial lung disease in both lower lobes and around the right hilum. This is more likely due to underlying pulmonary fibrosis from COPD rather than interstitial edema from congestive heart failure Interpreted and Authenticated by: Leroy Salinas 08/15/16
[2016-08-15] MEDS: DOCUSATE SODIUM 100 MG CAPSULE PO SCH ×2 (08:47→21:26)
[2016-08-15] MEDS: HEPARIN 5,000 UNIT/ML VIAL SQ SCH ×2 (08:47→21:26)
[2016-08-15] MEDS: MULTIVIT,THER IRON,CA,FA & MIN 1 TABLET PO SCH (08:47)
[2016-08-15] MEDS ORDERED: LISINOPRIL 20 MG TABLET PO SCH (09:00)
[2016-08-15] MEDS ORDERED: LEVOFLOXACIN 750 MG/150 ML BAG IV SCH (09:00)
[2016-08-15] MEDS ORDERED: PNEUMOCOCCAL 23-VAL P-SAC VAC 0.5 ML VIAL IM ONE (09:00)
[2016-08-15] MEDS: cefTRIAXone 2 GM in DEXTROSE 5% IN WATER 50 ML IV SCH (09:49)
[2016-08-15] MEDS ORDERED: NICOTINE 21 MG PATCH TOPICAL SCH (10:00)
--- NOTE | 2016-08-15 10:11 | Internal Med Progress Note ---
Medical - PN: Subj Patient information: Note initiated : 08/15/16 at 10:09 am Service Date, if different from initiated Date: [] Patient: Eliz Bruno 60 y/o F admitted on 08/13/16 for Sepsis, Critical Hypokalemia/Uvolemic Hyponatremia. Chief Complaint: [] Interval history: 08/13- patient admitted with critical hypokalemia,symptomatic hyponatremia, congestive heart failure weakness and falls. Associated UTI with sepsis. Admitted to ICU. High risk mortality. On aggressive electrolyte Replacement/ Monitoring. Nephrology consulted. CHERI secondary to severe sepsis 08/14- dictation responding well to treatment along with aggressive electrolyte replacements. Continue ICU care. Potassium from 2.2-3.4. creatinine down from 1.7-1.5. Magnesium up from 0.9-1.2. sodium improved to 124. Aontinue dietary supplements/supportive management. white count downtrending from 17.2 -16.4. Stable labs and hemodynamics. cultures negative so far 08/15- Patient doing well. No overnight events. No concerns per staff other than extremely emotionally labile patient experiencing suicidal ideation. Mental health services/[facility] consult rdered. Much improved renal function, electrolytes and potassium/magnesium/sodium. improved appetite and tolerating diet. white count down to 11.5 from 16.4. cultures negative so far. Stable hemodynamics - Constitutional Vitals: Vital Signs Temp Pulse Resp BP Pulse Ox 97.8 F 110 H 18 164/104 100 08/15/16 07:00 08/15/16 07:35 08/15/16 09:00 08/15/16 09:00 08/15/16 09:00 Period Temp Pulse Resp BP Sys/Cates Pulse Ox Last 24 Hr 97.6 F-98.2 F 95-119 16-25 147-185/77-107 92-100 Intake and Output 08/14/16 08/15/16 08/15/16 21:59 05:59 13:59 Intake Total 2330 / 2330 820 / 820 350 / 350 Output Total 1000 / 1000 1900 / 1900 Balance 1330 / 1330 -1080 / -1080 350 / 350 Weight 135 lb Intake & Output: Intake & Output 08/14/16 08/15/16 08/15/16 21:59 05:59 13:59 Intake Total 2330 / 2330 820 / 820 350 / 350 Output Total 1000 / 1000 1900 / 1900 Balance 1330 / 1330 -1080 / -1080 350 / 350 Weight 135 lb Intake: IV 50 / 50 50 / 50 Dextrose 5% in Water 50 50 / 50 ml @ 100 mls/hr IV DAILY ELIZABETH with Rocephin 2 gm Rx #:[id number] Oral 2280 / 2280 820 / 820 300 / 300 Output: Urine Catheter Amount 1000 / 1000 1900 / 1900 Other: Meal Dinner Percent of Meal Consumed 100% Feeding Ability Assist with Tray Set Up # Bowel Movements 0 0 General appearance: cooperative, no acute distress Exam: emotionally labile Cooperative Nonlabored breathing No telemetry events except for tachycardia around 115 No lymphedema Medical - PN: Obj Da - Labs CBC & Chem 7: 08/15/16 04:15 08/15/16 04:15 Labs: Abnormal Lab Results 08/15/16 08/15/16 08/15/16 04:15 04:15 00:05 WBC 11.5 H RBC 3.92 L Hgb 11.3 L Hct 34.0 L RDW 15.4 H Seg Neutrophils % Lymphocytes % 13 L RBC Morphology Abnorm A Anisocytosis 1+ A RBC Fragments Occ A ESR Sodium 127 L 123 L Potassium Chloride 87 L 86 L Creatinine 1.4 H 1.4 H Glucose 115 H 140 H Calcium 7.6 L 7.5 L Magnesium Alkaline Phosphatase 126 H Total Protein 5.2 L Albumin 2.3 L Albumin/Globulin Ratio 0.8 L 08/14/16 08/14/16 08/14/16 20:59 16:11 12:18 WBC RBC Hgb Hct RDW Seg Neutrophils % Lymphocytes % RBC Morphology Anisocytosis RBC Fragments ESR Sodium 126 L 124 L 123 L Potassium Chloride 88 L 83 L 85 L Creatinine 1.4 H 1.4 H 1.5 H Glucose 117 H Calcium 7.2 L 7.0 L 7.0 L Magnesium Alkaline Phosphatase Total Protein Albumin Albumin/Globulin Ratio 08/14/16 08/14/16 08/14/16 08:08 01:31 01:31 WBC 16.4 H RBC Hgb 11.5 L Hct 34.3 L RDW Seg Neutrophils % 85 H Lymphocytes % 7 L RBC Morphology Anisocytosis RBC Fragments ESR Sodium 124 L 124 L Potassium 3.1 L Chloride 84 L 83 L Creatinine 1.5 H 1.6 H Glucose 138 H Calcium 6.8 L 6.7 L Magnesium 1.2 L Alkaline Phosphatase 130 H Total Protein 4.9 L Albumin 2.4 L Albumin/Globulin Ratio 08/13/16 08/13/16 22:40 22:40 WBC RBC Hgb Hct RDW Seg Neutrophils % Lymphocytes % RBC Morphology Anisocytosis RBC Fragments ESR 65 H Sodium Potassium Chloride Creatinine Glucose Calcium Magnesium 1.3 L Alkaline Phosphatase Total Protein Albumin Albumin/Globulin Ratio Meds: Medications Acetaminophen (Tylenol) 650 mg PO Q4-6HP PRN PRN Reason: PAIN/FEVER > 101 Last Admin: 08/14/16 08:08 Dose: 650 mg Acetaminophen/Hydrocodone Bitart ([place]ana 5/325mg) 1 tab PO Q4-6HP PRN PRN Reason: Pain Last Admin: 08/15/16 06:16 Dose: 1 tab Amlodipine Besylate (Norvasc) 5 mg PO HS [facility] Last Admin: 08/14/16 20:57 Dose: 5 mg Docusate Sodium (Colace) 100 mg PO BID [facility] Last Admin: 08/15/16 08:47 Dose: 100 mg Guaifenesin/Codeine Phosphate (Robitussin Ac) 10 ml PO Q4HP PRN PRN Reason: Cough Last Admin: 08/14/16 22:33 Dose: 10 ml Heparin Sodium (Porcine) (Heparin) 5,000 unit SQ Q12 [facility] Last Admin: 08/15/16 08:47 Dose: 5,000 unit Hydralazine HCl (Apresoline) 0 mg IV Q8HP PRN PRN Reason: Hypertension Last Admin: 08/15/16 06:01 Dose: 20 mg Potassium Chloride 40 meq/ (Dextrose) 520 mls @ 130 mls/hr IV UD PRN PRN Reason: K+ = or < 3.5 Last Admin: 08/15/16 08:06 Dose: 130 mls/hr Magnesium Sulfate (Magnesium Sulfate) 2 gm in 50 mls @ 50 mls/hr IV UD PRN PRN Reason: Mag < or = 1.7 Last Infusion: 08/15/16 09:10 Dose: Infused Acetaminophen (Ofirmev) 1,000 mg in 100 mls @ 200 mls/hr IV Q6HP PRN PRN Reason: PAIN/FEVER > 101 Ceftriaxone Sodium 2 gm/ (Dextrose) 50 mls @ 100 mls/hr IV DAILY [facility] Last Admin: 08/15/16 09:49 Dose: 100 mls/hr Levofloxacin (Levaquin) 750 mg in 150 mls @ 100 mls/hr IV Q48H [facility] Iron Carb/Multivit/[employer]/Folic Acid (Multivitamin W/Minerals) 1 tab PO DAILY [facility] Last Admin: 08/15/16 08:47 Dose: 1 tab Lisinopril (Zestril) 20 mg PO DAILY [facility] Last Admin: 08/15/16 08:47 Dose: 20 mg Lorazepam (Ativan) 0.5 mg PO Q6HP PRN PRN Reason: ANXIETY/SEDATION Last Admin: 08/15/16 06:40 Dose: 0.5 mg Nicotine (Nicoderm) 21 mg TOPICAL DAILY@1000 ELIZABETH Ondansetron HCl (Zofran) 4 mg IV Q4-6HP PRN PRN Reason: Nausea And Vomiting Potassium Chloride (Klor-Con) 40 meq PO DAILYP PRN PRN Reason: K+ < 3.5 Potassium Chloride (Potassium Chloride) 40 meq PO BIDCC [facility] Last Admin: 08/15/16 08:05 Dose: 40 meq Senna/Docusate Sodium (Senna Plus Tablet) 1 tab PO HS [facility] Last Admin: 08/14/16 20:58 Dose: Not Given Sodium Chloride (Saline Flush) 10 ml IV Q8 [facility] Last Admin: 08/15/16 08:07 Dose: 10 ml Trazodone HCl (Desyrel) 50 mg PO HSP PRN PRN Reason: Insomnia Last Admin: 08/14/16 22:33 Dose: 50 mg Medical - PN: A/P - Time Spent With Patient Total time spent is greater than 50% in coordination of care (as documented) at patient's floor/unit and/or counseling patient: 25 - 35 minutes (1) Acute hypokalemia Status: Acute Assessment and plan: * Severe sepsis from complicated UTI with end organ dysfunction-clinically improving with downtrending white count from 17-11. * Antibiotic coverage * Complicated UTI on antibiotic coverage. cultures negative so far * Critical hypokalemia/multiple electrolyte abnormalities- clinically resolved. Management per nephrology * Euvolemic hyponatremia-sodium at 127. Secondary to poor oral intake * CHERI-managed per nephrology. Creatinine 1.4 * History of hypertension- unclear if the patient has been taking her home medications. systolics around 150s plan * continue antibiotic coverage * renal failure/electrolyte management per nephrology * transfer to telemetry Current Visit: Yes Medical - PN: Qual - VTE Deep Vein Thrombosis/Pulmonary Embolism Present on Admission: No
[2016-08-15] MEDS ORDERED: POTASSIUM CHLORIDE 40 MEQ in DEXTROSE 5% IN WATER 500 ML IV PRN (11:54)
[2016-08-15] MEDS ORDERED: ACETAMINOPHEN 1,000 MG/100 ML BOTTLE IV PRN (11:54)
[2016-08-15] MEDS ORDERED: POTASSIUM CHLORIDE 20 MEQ PACKET PO PRN (11:54)
[2016-08-15] MEDS ORDERED: guaiFENesin/CODEINE 10 ML UDC PO PRN (11:54)
[2016-08-15] MEDS ORDERED: hydrALAZINE 20 MG/ML VIAL IV PRN (11:54)
[2016-08-15] MEDS ORDERED: traZODone HCL 50 MG TABLET PO PRN (11:54)
[2016-08-15] MEDS ORDERED: MAGNESIUM SULFATE 2 GM/50 ML BAG IV PRN (11:54)
[2016-08-15] MEDS ORDERED: ACETAMINOPHEN 325 MG TABLET PO PRN (11:54)
[2016-08-15] MEDS ORDERED: ONDANSETRON 4 MG/2 ML VIAL IV PRN (11:54)
[2016-08-15] MEDS ORDERED: amLODIPine 5 MG TABLET PO SCH (21:00)
[2016-08-15] MEDS ORDERED: SENNOSIDES/DOCUSATE SODIUM 1 TAB TABLET PO SCH (21:00)
[2016-08-16] MEDS: 0.9 % SODIUM CHLORIDE 10 ML SYRINGE IV SCH (05:16)
[2016-08-16 05:35] LABS: ALT/SGPT 11 U/l (0-40); Albumin 2.6 gm/dL (3.2-5.2); Albumin/Globulin Ratio 0.9 (1.0-2.3); Alkaline Phosphatase 131 U/L (39-117); Bilirubin,Direct < 0.2 mg/dL (0.0-0.3); Blood Urea Nitrogen 20 mg/dl (8-23); Gamma Glutamyl Transpeptidase 23 U/L (5-36); Magnesium 1.9 mg/dL (1.6-2.5); Phosphorous 3.3 mg/dL (2.7-4.5); Uric Acid 5.6 mg/dL (2.5-8.0)
[2016-08-16] MEDS: HYDROcodone/APAP 5/325MG TABLET PO PRN (05:50)
[2016-08-16 08:28] LABS: Anisocytosis 1+ (NONE SEEN); Eosinophils % (Manual) 3 % (0-7); Lymphocytes % 20 % (15-49); Monocytes % (Manual) 7 % (1-9); Platelet Estimate NORMAL (NORMAL); RBC Morphology ABNORM (NORMAL); Segmented Neutrophils % 70 % (38-78)
[2016-08-16 08:59] LABS: Mean Cell Volume 88.2 fL (80.0-100.0); Mean Corpuscular HGB Conc 32.3 g/dL (31.0-36.0); Mean Corpuscular Hemoglobin 28.5 pg (26.0-34.0); Platelet Count 310 K/mcL (140-440); RBC 4.06 M/mcL (4.00-5.20); Red Cell Distribution Width 14.9 % (11.5-14.5)
[2016-08-16] MEDS ORDERED: LISINOPRIL 20 MG TABLET PO SCH (09:00)
[2016-08-16] MEDS ORDERED: POTASSIUM CHLORIDE 20 MEQ/15 ML ML PO SCH (09:00)
[2016-08-16] MEDS ORDERED: cefTRIAXone 2 GM in DEXTROSE 5% IN WATER 50 ML IV SCH (09:00)
[2016-08-16] MEDS ORDERED: MULTIVIT,THER IRON,CA,FA & MIN 1 TABLET PO SCH (09:00)
[2016-08-16] MEDS: DOCUSATE SODIUM 100 MG CAPSULE PO SCH (09:37)
[2016-08-16] MEDS: HEPARIN 5,000 UNIT/ML VIAL SQ SCH (09:38)
[2016-08-16] MEDS ORDERED: NICOTINE 21 MG PATCH TOPICAL SCH (10:00)
[2016-08-16] MEDS ORDERED: FUROSEMIDE 20 MG/2 ML VIAL IV ONE (10:13)
[2016-08-16] MEDS: LORazepam 0.5 MG TABLET PO PRN (10:35)
--- NOTE | 2016-08-16 12:02 | Internal Med Progress Note ---
Medical - PN: Subj Patient information: Note initiated : 08/16/16 at 11:58 am Service Date, if different from initiated Date: [] Patient: Eliz Bruno 61 y/o F admitted on 08/13/16 for Sepsis, Critical Hypokalemia/Uvolemic Hyponatremia. Chief Complaint: [] Interval history: 08/13- patient admitted with critical hypokalemia,symptomatic hyponatremia, congestive heart failure weakness and falls. Associated UTI with sepsis. Admitted to ICU. High risk mortality. On aggressive electrolyte Replacement/ Monitoring. Nephrology consulted. CHERI secondary to severe sepsis 08/14- dictation responding well to treatment along with aggressive electrolyte replacements. Continue ICU care. Potassium from 2.2-3.4. creatinine down from 1.7-1.5. Magnesium up from 0.9-1.2. sodium improved to 124. Aontinue dietary supplements/supportive management. white count downtrending from 17.2 -16.4. Stable labs and hemodynamics. cultures negative so far 08/15- Patient doing well. No overnight events. No concerns per staff other than extremely emotionally labile patient experiencing suicidal ideation. Mental health services/[facility] consult rdered. Much improved renal function, electrolytes and potassium/magnesium/sodium. improved appetite and tolerating diet. white count down to 11.5 from 16.4. cultures negative so far. Stable hemodynamics 08/16- patient clinically feels a lot better and in good spirits however worsening creatinine 1.9 and sodium at 120. Nephrology recommends continued monitoring and treatment in light of above. Patient requesting discharge. no overnight fever chills. Improving anxiety. Tolerating diet and ambulating - Constitutional Vitals: Vital Signs Temp Pulse Resp BP Pulse Ox 97.9 F 94 H 18 129/81 98 08/16/16 08:00 08/16/16 08:00 08/16/16 08:00 08/16/16 08:00 08/16/16 08:00 Period Temp Pulse Resp BP Sys/Cates Pulse Ox Last 24 Hr 97.7 F-98.4 F 89-94 16-20 118-146/55-90 97-99 Intake and Output 08/15/16 08/16/16 08/16/16 21:59 05:59 13:59 Intake Total 720 / 720 580 / 580 340 / 340 Output Total 450 / 450 2150 / 2150 Balance 270 / 270 -1570 / -1570 340 / 340 Weight 136 lb 9.6 oz Intake & Output: Intake & Output 08/15/16 08/16/16 08/16/16 21:59 05:59 13:59 Intake Total 720 / 720 580 / 580 340 / 340 Output Total 450 / 450 2150 / 2150 Balance 270 / 270 -1570 / -1570 340 / 340 Weight 136 lb 9.6 oz Intake: Oral 720 / 720 580 / 580 340 / 340 Output: Urine Catheter Amount 450 / 450 1950 / 1950 Void Amount 200 / 200 Other: Meal Dinner Nourishment/Supplement Percent of Meal Consumed 100% 100% Feeding Ability Assist with Tray Set Up # Bowel Movements 0 0 General appearance: cooperative, no acute distress Exam: alert oriented nonlabored breathing No anxiety no lymphedema Medical - PN: Obj Da - Labs CBC & Chem 7: 08/16/16 03:50 08/16/16 03:50 Labs: Abnormal Lab Results 08/16/16 08/16/16 08/15/16 03:50 03:50 04:15 WBC RBC Hgb 11.6 L Hct 35.8 L RDW 14.9 H Seg Neutrophils % Lymphocytes % RBC Morphology Abnorm A Anisocytosis 1+ A RBC Fragments Rare A ESR Sodium 120 L 127 L Potassium Chloride 85 L 87 L Creatinine 1.9 H 1.4 H Glucose 125 H 115 H Calcium 8.0 L 7.6 L Magnesium Alkaline Phosphatase 131 H 126 H Lactate Dehydrogenase 266 H Total Protein 5.6 L 5.2 L Albumin 2.6 L 2.3 L Albumin/Globulin Ratio 0.9 L 0.8 L 08/15/16 08/15/16 08/14/16 04:15 00:05 20:59 WBC 11.5 H RBC 3.92 L Hgb 11.3 L Hct 34.0 L RDW 15.4 H Seg Neutrophils % Lymphocytes % 13 L RBC Morphology Abnorm A Anisocytosis 1+ A RBC Fragments Occ A ESR Sodium 123 L 126 L Potassium Chloride 86 L 88 L Creatinine 1.4 H 1.4 H Glucose 140 H 117 H Calcium 7.5 L 7.2 L Magnesium Alkaline Phosphatase Lactate Dehydrogenase Total Protein Albumin Albumin/Globulin Ratio 08/14/16 08/14/16 08/14/16 16:11 12:18 08:08 WBC RBC Hgb Hct RDW Seg Neutrophils % Lymphocytes % RBC Morphology Anisocytosis RBC Fragments ESR Sodium 124 L 123 L 124 L Potassium Chloride 83 L 85 L 84 L Creatinine 1.4 H 1.5 H 1.5 H Glucose 138 H Calcium 7.0 L 7.0 L 6.8 L Magnesium Alkaline Phosphatase Lactate Dehydrogenase Total Protein Albumin Albumin/Globulin Ratio 08/14/16 08/14/16 08/13/16 01:31 01:31 22:40 WBC 16.4 H RBC Hgb 11.5 L Hct 34.3 L RDW Seg Neutrophils % 85 H Lymphocytes % 7 L RBC Morphology Anisocytosis RBC Fragments ESR 65 H Sodium 124 L Potassium 3.1 L Chloride 83 L Creatinine 1.6 H Glucose Calcium 6.7 L Magnesium 1.2 L Alkaline Phosphatase 130 H Lactate Dehydrogenase Total Protein 4.9 L Albumin 2.4 L Albumin/Globulin Ratio 08/13/16 22:40 WBC RBC Hgb Hct RDW Seg Neutrophils % Lymphocytes % RBC Morphology Anisocytosis RBC Fragments ESR Sodium Potassium Chloride Creatinine Glucose Calcium Magnesium 1.3 L Alkaline Phosphatase Lactate Dehydrogenase Total Protein Albumin Albumin/Globulin Ratio Meds: Medications Acetaminophen (Tylenol) 650 mg PO Q4-6HP PRN PRN Reason: PAIN/FEVER > 101 Acetaminophen/Hydrocodone Bitart ([place] 5/325mg) 1 tab PO Q4-6HP PRN PRN Reason: Pain Last Admin: 08/16/16 05:50 Dose: 1 tab Amlodipine Besylate (Norvasc) 5 mg PO HS [facility] Last Admin: 08/15/16 21:26 Dose: 5 mg Docusate Sodium (Colace) 100 mg PO BID [facility] Last Admin: 08/16/16 09:37 Dose: 100 mg Guaifenesin/Codeine Phosphate (Robitussin Ac) 10 ml PO Q4HP PRN PRN Reason: Cough Heparin Sodium (Porcine) (Heparin) 5,000 unit SQ Q12 [facility] Last Admin: 08/16/16 09:38 Dose: 5,000 unit Hydralazine HCl (Apresoline) 0 mg IV Q8HP PRN PRN Reason: Hypertension Potassium Chloride 40 meq/ (Dextrose) 520 mls @ 130 mls/hr IV UD PRN PRN Reason: K+ = or < 3.5 Magnesium Sulfate (Magnesium Sulfate) 2 gm in 50 mls @ 50 mls/hr IV UD PRN PRN Reason: Mag < or = 1.7 Acetaminophen (Ofirmev) 1,000 mg in 100 mls @ 200 mls/hr IV Q6HP PRN PRN Reason: PAIN/FEVER > 101 Ceftriaxone Sodium 2 gm/ (Dextrose) 50 mls @ 100 mls/hr IV DAILY [facility] Last Admin: 08/16/16 09:39 Dose: 100 mls/hr Iron Carb/Multivit/[place]/Folic Acid (Multivitamin W/Minerals) 1 tab PO DAILY [facility] Last Admin: 08/16/16 09:38 Dose: 1 tab Lisinopril (Zestril) 20 mg PO DAILY [facility] Last Admin: 08/16/16 09:38 Dose: 20 mg Lorazepam (Ativan) 0.5 mg PO Q6HP PRN PRN Reason: ANXIETY/SEDATION Last Admin: 08/16/16 10:35 Dose: 0.5 mg Nicotine (Nicoderm) 21 mg TOPICAL DAILY@1000 [facility] Last Admin: 08/16/16 10:02 Dose: 21 mg Ondansetron HCl (Zofran) 4 mg IV Q4-6HP PRN PRN Reason: Nausea And Vomiting Potassium Chloride (Klor-Con) 40 meq PO DAILYP PRN PRN Reason: K+ < 3.5 Potassium Chloride (Potassium Chloride) 40 meq PO DAILY [facility] Last Admin: 08/16/16 09:50 Dose: 40 meq Senna/Docusate Sodium (Senna Plus Tablet) 1 tab PO HS [facility] Last Admin: 08/15/16 21:26 Dose: 1 tab Sodium Chloride (Saline Flush) 10 ml IV Q8 [facility] Last Admin: 08/16/16 05:16 Dose: 10 ml Trazodone HCl (Desyrel) 50 mg PO HSP PRN PRN Reason: Insomnia Last Admin: 08/15/16 21:26 Dose: 50 mg Medical - PN: A/P - Time Spent With Patient Total time spent is greater than 50% in coordination of care (as documented) at patient's floor/unit and/or counseling patient: 15 - 24 minutes (1) Acute hypokalemia Status: Acute Assessment and plan: * Worsening acute renal failure-managed by nephrology. Creatinine 1.9 * Severe euvolemic hyponatremia-sodium at 120. secondary to excessive free water intake. Managed by nephrology * Severe sepsis from complicated UTI . clinically resolved WBC down to 10 * Complicated UTI -continue ABX * hypokalemia- resolved with replacement * History of hypertension- systolics around 150s. patient has not been taking home meds plan * renal failure/electrolytes management per nephrology * continue antibiotics * telemetry monitoring Current Visit: Yes Medical - PN: Qual - VTE Deep Vein Thrombosis/Pulmonary Embolism Present on Admission: No
--- NOTE | 2016-08-16 16:25 | Nephrology Progress Note ---
Subjective Patient information: Note initiated : 08/16/16 at 4:21 pm Service Date, if different from initiated Date: [] Patient: Eliz Bruno 61 y/o F admitted on 08/13/16 for Sepsis, Critical Hypokalemia/Uvolemic Hyponatremia. Chief Complaint: [] Principal diagnosis: hyponatremia, hypokalemia Interval history: serum sodium dropped to 120, noted to be drinking 3-4L of water K is stable s.creatinine upto 1.9, has nephrotic syndrome with UCPR of 15gm and low albumin patient has some edema today, she denies SOB, CP,d izziness She has no other complaints she seemed to be eager to go home today, told her she is not ready for discharge Pertinent ROS: as above Objective - Vital Signs Vital signs: Vital Signs Temp Pulse Resp BP BP Pulse Ox 08/16/16 13:54 96 08/16/16 12:00 98.3 F 81 20 136/83 96 08/16/16 08:00 97.9 F 94 H 18 129/81 98 08/16/16 04:00 98.2 F 94 H 16 146/89 99 08/16/16 00:00 97.8 F 89 16 138/70 99 08/15/16 20:00 98.4 F 20 129/90 97 08/15/16 19:59 18 Intake and Output 08/16/16 08/16/16 08/16/16 05:59 13:59 21:59 Intake Total 580 / 580 580 / 580 Output Total 2150 / 2150 300 / 300 Balance -1570 / -1570 280 / 280 Intake: Oral 580 / 580 580 / 580 Output: Urine Catheter Amount 1949 Void Amount 200 / 200 300 / 300 Other: Meal Nourishment/Supplement Lunch Percent of Meal Consumed 100% 100% # Bowel Movements 0 Intake & Output: Intake & Output 08/16/16 08/16/16 08/16/16 05:59 13:59 21:59 Intake Total 580 / 580 580 / 580 Output Total 2150 / 2150 300 / 300 Balance -1570 / -1570 280 / 280 Intake: Oral 580 / 580 580 / 580 Output: Urine Catheter Amount 1949 Void Amount 200 / 200 300 / 300 Other: Meal Nourishment/Supplement Lunch Percent of Meal Consumed 100% 100% # Bowel Movements 0 - General Appearance General appearance: appears started age, chronically ill EENT: mucous membranes moist Neck: no JVD Respiratory: clear Cardiology: no rub, edema, normal S1, normal S2 Gastrointestinal: no tenderness, no guarding Integumentary: no rash, warm and dry Neurologic: no focal deficit, alert and oriented x3 Musculoskeletal: no erythema, no clubbing Psychiatric: depressed - Lab 08/16/16 03:50 08/16/16 03:50 Most recent lab results Calcium 8.0 mg/dl (8.6-10.4) L 08/16/16 03:50 Phosphorus 3.3 mg/dL (2.7-4.5) 08/16/16 03:50 Magnesium 1.9 mg/dL (1.6-2.5) 08/16/16 03:50 Assessment and Plan (1) Chronic kidney disease, stage 3 CKD stage IV: s.creat is at 1.9 declined after ACEI resumed but expected decline , also needs it given profound proteinuria UPCR is 15, WILL RECHECK THIS as outpt and repeat proteinuria work up hyponatremia: hypervolemic fluid restriction at 1.5L also will give lasix 20mg IV Will recheck labs later today to ensure improving hypokalemia: stable anemia: etiology multifactorial sepsis/UTI/possible PNA on antibiotics Depression: long term care social worker trying to arrange behavioral health visit Status: Acute (2) Acute hypokalemia Status: Acute (3) Hyponatremia Status: Acute
[2016-08-16 17:26] LABS: Blood Urea Nitrogen 24 mg/dl (8-23)
== END 2016-08-16 16:30 | disposition home or self-care (01) | DRG 872 ==
LOC: ED 17:45 → ICU 22:10
PROVIDERS: ADMIT Internal Medicine; ATTEND Internal Medicine